=== PATIENT | female | born 1945 | race Caucasian/White ===

== ENCOUNTER 2016-10-02 18:12 | Observation (INO) | payer MEDICARE, OTHER, MEDICAID ==
[~2016-10-02 18:12] MED LIST: ATIVAN0.5 M1 PO; CPAP; CYMBALTA60 MG PO; DIOVAN HCT 320/1 TAB PO; FOLIC ACID1 MG PO; LAMOTRIGINE100 MG PO; LANTUS SOLOSTAR3 ML SQ; LASIX40 M1 PO; LORAZEPAM0.5 MG PO; NOVOLOG100 UNITS/ SC; POTASSIUM CHLO20 ME3 PO; POTASSIUM CHLO20 MEQ PO; PRISTIQ50 MG PO; ROPINIROLE HCL3 MG PO; SEROQUEL XR150 M1 PO; SYNTHROID137 MC1 PO; TYLENOL325 M2 PO; WELCHOL625 MG PO; ZETIA10 MG PO
[2016-10-02 18:55] LABS: BASO % 0.4 % (0-2); EOS % 3.6 % (0-7); EOSINOPHIL ABSOLUTE COUNT 0.3 tho/cmm (0.0-0.7); HCT-HEMATOCRIT 38.6 % (34.0-49.0); HGB-HEMOGLOBIN 12.3 gm/dl (12.0-15.5); IMMATURE GRANULOCYTES ABSOLUTE 0.03 tho/cmm (0-0.03); IMMATURE GRANULOCYTES PERCENT 0.4 % (0-0.3); LYMPH % 31.8 % (20-45); LYMPH ABSOLUTE COUNT 2.5 tho/cmm (0.8-4.5); MCH (MEAN CORPUSCULAR HGB) 27.6 pg (28.0-32.0); MCHC MEAN CORPUSCULAR HGB CONC 31.9 % (32.0-36.0); MCV (MEAN CELL VOLUME) 86.7 fl (82.0-96.0); MEAN PLATELET VOLUME 9.8 cmc (9.4-12.4); MONO % 6.6 % (0-12); MONOCYTE ABSOLUTE COUNT 0.5 tho/cmm (0.0-1.2); NEUTROPHIL ABSOLUTE COUNT 4.4 tho/cmm (1.6-8.0); NEUTROPHIL-AUTOMATED 4.4 tho/cmm (1.6-8.0); NEUTROPHILS % 57.2 % (40-80); PLATELET COUNT 210 tho/cmm (150-450); RED BLOOD COUNT 4.45 mil/cmm (4.00-5.20); RED CELL DISTRIBUTION WIDTH 15.1 % (12.4-16.4); WHITE BLOOD COUNT 7.7 tho/cmm (4.0-10.0)
[2016-10-02 19:09] LABS: ANION GAP 13 mmol/L (0-20); BLOOD UREA NITROGEN 17 mg/dl (6-24); CARBON DIOXIDE-VENOUS 26 mmol/L (22-32); CHLORIDE 104 mmol/l (96-110); CREATININE 0.88 mg/dl (0.50-1.10); GLUCOSE 106 mg/dL (70-110); POTASSIUM 4.4 mmol/L (3.7-5.1); SODIUM 139 mmol/L (135-145); eGFR VALUE FOR BLACK 76 mL/Min
[2016-10-02] MEDS ORDERED: TOUJEO SOL300 UNIT/1 SC (19:13)
[2016-10-02] MEDS ORDERED: FETZIMA80 M1 PO (19:18)
[2016-10-02] MEDS ORDERED: PERIDEX118 ML SSP (19:18)
[2016-10-02] MEDS ORDERED: LEVAQUIN500 M1 PO (19:19)
[2016-10-02] MEDS ORDERED: NEURONTIN400 M1 PO (19:19)
[2016-10-02] MEDS ORDERED: COZAAR50 M1 PO (19:19)
[2016-10-02] MEDS ORDERED: STOOL SOFTENER100 M3 PO (19:20)
[2016-10-02] MEDS ORDERED: ULTRAM50 M1 PO (19:20)
[2016-10-02] MEDS ORDERED: MUCINEX600 M1 PO (19:20)
[2016-10-02] MEDS ORDERED: PROTONIX40 M2 PO (19:20)
[2016-10-02] MEDS ORDERED: ANTACID II-SIM360 ML PO (19:21)
[2016-10-02] MEDS ORDERED: BENADRYL25 M3 PO (19:21)
[2016-10-02] MEDS ORDERED: FLEET ENEMA133 ML PR (19:22)
[2016-10-02] MEDS ORDERED: TESSALON PERLE100 M1 PO (19:22)
[2016-10-02] MEDS ORDERED: IMODIUM A-D2 M3 PO (19:22)
[2016-10-02] MEDS ORDERED: TRAMADOL HCL50 M2 PO (19:23)
[2016-10-02] MEDS ORDERED: MILK OF MAGNESIA PO (19:23)
[2016-10-02] MEDS ORDERED: NYSTATIN15 G1 TP (19:24)
[2016-10-02] MEDS ORDERED: ORAJEL (19:24)
[2016-10-02] MEDS ORDERED: IPRAT-ALBUT 0.5-3 ML (19:24)
[2016-10-02 19:26] LABS: PROCALCITONIN 0.08 ng/ml (0.05-0.09)
[2016-10-02 23:55] LABS: ALB/GLOB RATIO 0.7 (0.8-2.0); ALBUMIN 3.6 g/dl (3.5-5.0); ALKALINE PHOSPHATASE 185 U/L (33-138); ALT/SGPT 43 U/L (12-78); ANION GAP 15 mmol/L (0-20); AST/SGOT 37 U/L (10-40); BILIRUBIN,TOTAL 0.2 mg/dl (0-1.5); BLOOD UREA NITROGEN 18 mg/dl (6-24); CALCIUM 8.8 mg/dl (8.5-10.5); CARBON DIOXIDE-VENOUS 24 mmol/L (22-32); CHLORIDE 104 mmol/l (96-110); CREATININE 0.96 mg/dl (0.50-1.10); GLUCOSE 104 mg/dL (70-110); POTASSIUM 4.4 mmol/L (3.7-5.1); SODIUM 139 mmol/L (135-145); eGFR VALUE FOR BLACK 68 mL/Min
[2016-10-03] MEDS ORDERED: IPRAT-ALBUT 0.5-3 ML INH (13:10)
[2016-10-03] MEDS ORDERED: MEDROL4 M2 PO (13:18)
[2016-10-03] MEDS ORDERED: ROBITUSSIN COU237 M1 PO (13:19)
== END 2016-10-03 13:35 ==
LOC: EDMED 18:12 → EMR2 20:48 → CAR1 23:04
PROVIDERS: Nurse Practitioner Family; ADMIT Internal Medicine
DX: J00 Acute nasopharyngitis [common cold] (principal); E11.9 Type 2 diabetes mellitus without complications; I10 Essential (primary) hypertension; E78.5 Hyperlipidemia, unspecified; K21.9 Gastro-esophageal reflux disease without esophagitis; G89.29 Other chronic pain; M54.5 Low back pain; E89.0 Postprocedural hypothyroidism; Z79.2 Long term (current) use of antibiotics; Z79.4 Long term (current) use of insulin; Z79.899 Other long term (current) drug therapy; Z88.0 Allergy status to penicillin; Z88.1 Allergy status to other antibiotic agents; Z88.7 Allergy status to serum and vaccine; Z88.8 Allergy status to other drugs, medicaments and biological substances; Z91.041 Radiographic dye allergy status; Z86.711 Personal history of pulmonary embolism; Z90.49 Acquired absence of other specified parts of digestive tract; Z90.710 Acquired absence of both cervix and uterus; Z98.1 Arthrodesis status; Z98.890 Other specified postprocedural states
CPT/HCPCS: G0378; G8978-GP-CM; G8979-GP-CM; G8980-GP-CM; J0456; J1815; J2930; J7030; J7050